=== PATIENT | male | born 1995 | race Hispanic/Latino ===

== ENCOUNTER 2017-12-17 16:53 | Outpatient (CLI) | payer BC ==
--- NOTE | 2017-12-17 19:10 | RAD ---
CHEST PA AND LATERAL: 12/17/17 HISTORY: 22-year-old male with history of shortness of breath, heart starts pounding with exercise. Heart size is normal. The lungs are clear. No pneumonia, edema, pleural effusion, or other acute proc ess. No pneumothorax. IMPRESSION: No acute intrathoracic disease. POS: [facility]
== END 2017-12-17 16:54 | disposition home or self-care (01) ==
LOC: SCSRAD 16:53
PROVIDERS: ATTEND Family Medicine
DX: R06.02 Shortness of breath (principal)
CPT/HCPCS: 71046

== ENCOUNTER 2018-03-11 14:33 | Outpatient (CLI) | payer BC ==
--- NOTE | 2018-03-11 14:46 | RAD ---
TWO VIEWS CHEST: History: Dyspnea. Comparison: 12-17-17 FINDINGS: Normal cardiac silhouette. The lungs and pleural spaces are clear. No pneumothorax or osseous abnorma lity. IMPRESSION: No acute cardiopulmonary process. POS: [id number]
== END 2018-03-11 14:34 | disposition home or self-care (01) ==
LOC: RAD 14:33
PROVIDERS: ATTEND Internal Medicine Pulmonary Disease
DX: R06.00 Dyspnea, unspecified (principal)
CPT/HCPCS: 71046